=== PATIENT | female | born 1980 | race American Indian/Alaskan Native ===

== ENCOUNTER 2017-05-17 15:02 | Emergency (ER) | payer MEDICAID ==
[2017-05-17 15:19] VITALS: BP 120/83
[2017-05-17] MEDS ORDERED: NORCO 5/325 PO ONE (20:18)
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
== END 2017-05-17 21:29 | disposition home or self-care (01) ==
LOC: ED 15:02
DX: M62.838 Other muscle spasm (principal); Z76.5 Malingerer [conscious simulation]; F17.200 Nicotine dependence, unspecified, uncomplicated
CPT/HCPCS: 99282